=== PATIENT | female | born 1960 | race Caucasian/White ===

== ENCOUNTER 2019-12-19 12:17 | Emergency (ER) | payer OTHER ==
[~2019-12-19] VITALS: Ht 162.6 cm; Wt 72.6 kg
[2019-12-19] MEDS ORDERED: NORCO 5-325 TA1 EAC1 PO (13:12)
[2019-12-19 13:44] VITALS: BP 122/62
== END 2019-12-19 13:45 | disposition home or self-care (01) ==
LOC: M.ERS 12:17
DX: S82.831A Other fracture of upper and lower end of right fibula, initial encounter for closed fracture (principal); Z90.710 Acquired absence of both cervix and uterus; W18.30XA Fall on same level, unspecified, initial encounter; Y93.89 Activity, other specified; Y92.89 Other specified places as the place of occurrence of the external cause; Y99.8 Other external cause status

== ENCOUNTER 2020-02-12 19:20 | Emergency (ER) | payer OTHER ==
[~2020-02-12] VITALS: Ht 162.6 cm; Wt 72.6 kg
[~2020-02-12 19:20] MED LIST: NORCO 5-325 TA1 EAC1 PO
[2020-02-12 20:14] LABS: CALCIUM 9.1 mg/dL (8.5-10.1); CREATININE 0.9 mg/dL (0.6-1.3); POTASSIUM 3.7 mmol/L (3.5-5.1)
[2020-02-12 21:03] VITALS: BP 140/69
== END 2020-02-12 21:13 | disposition home or self-care (01) ==
LOC: M.ERS 19:20
PROVIDERS: Emergency Medicine Emergency Medical Services
DX: M25.471 Effusion, right ankle (principal); Z90.710 Acquired absence of both cervix and uterus